=== PATIENT | male | born 1945 | race Caucasian/White ===

== ENCOUNTER 2016-07-05 22:53 | Inpatient (IN) | payer MEDICARE ==
[~2016-07-05] VITALS: Ht 174 cm; Wt 78.0 kg
[2016-07-05] MEDS ORDERED: SODIUM CHLORIDE 0.9% 1,000 ML ONE (23:30)
[2016-07-06] VITALS (8 sets, daily range): BP systolic 90–151; RESP 16–20; TEMP 97.8–99.3; Ht 174 cm; Wt 78.0 kg
[2016-07-06] MEDS ORDERED: DUONEB INH ONE (00:29)
[2016-07-06] MEDS ORDERED: PHARMACY TO DOSE VANCOMYCIN IV SCH (02:30)
[2016-07-06] MEDS ORDERED: SALINE FLUSH 10 ML FLUSH PRN (02:30)
[2016-07-06] MEDS: VANCOMYCIN 1,500 MG in SODIUM CHLORIDE 0.9% 250 ML IV SCH (05:23)
[2016-07-06] MEDS: SODIUM CHLORIDE 0.9% FLUSH BAG 500 ML IV SCH (05:24)
[2016-07-06] MEDS: SALINE FLUSH 10 ML FLUSH SCH ×2 (09:24→21:18)
[2016-07-06] MEDS: ENOXAPARIN 40 MG/0.4 ML SYR SUBQ SCH (09:24)
[2016-07-06] MEDS: LEVOFLOXACIN 750 MG/150 ML 150 ML IV SCH (09:24)
[2016-07-06] MEDS: CLOPIDOGREL 75 MG TAB PO SCH (12:50)
[2016-07-06] MEDS ORDERED: ZOLPIDEM 5 MG TAB PO PRN (12:50)
[2016-07-06] MEDS: CYANOCOBA 500 MCG TAB PO SCH (12:50)
[2016-07-06] MEDS: glipiZIDE 10 MG TAB PO SCH ×2 (12:50→21:18)
[2016-07-06] MEDS: METOPROLOL TART 50 MG TAB PO SCH ×2 (12:50→21:18)
[2016-07-06] MEDS: PANTOPRAZOLE 40 MG TAB PO SCH (13:07)
[2016-07-06] MEDS: FLUOCINONIDE 0.05% OINT 15 GM TOPICAL SCH (15:13)
[2016-07-06] MEDS: FLUOXETINE 20 MG CAP PO SCH (15:13)
[2016-07-06] MEDS: GABAPENTIN 400 MG CAP PO SCH ×2 (15:14→21:18)
[2016-07-06] MEDS: LEVEMIR INSULIN SUBQ SCH (15:14)
[2016-07-06] MEDS: NEB-ALBUTEROL 2.5 MG/3 ML INH PRN (21:09)
[2016-07-07] VITALS (7 sets, daily range): BP systolic 112–136; RESP 16–24; TEMP 97.2–100.7
[2016-07-07] MEDS ORDERED: ACETAMINOPHEN 500 MG TAB PO PRN (00:45)
[2016-07-07] MEDS: VANCOMYCIN 1,500 MG in SODIUM CHLORIDE 0.9% 250 ML IV SCH (04:53)
[2016-07-07] MEDS: PANTOPRAZOLE 40 MG TAB PO SCH (04:53)
[2016-07-07] MEDS: SODIUM CHLORIDE 0.9% FLUSH BAG 500 ML IV SCH (04:53)
[2016-07-07] MEDS: SALINE FLUSH 10 ML FLUSH SCH ×2 (08:00→20:17)
[2016-07-07] MEDS: glipiZIDE 10 MG TAB PO SCH ×2 (08:16→20:22)
[2016-07-07] MEDS: LEVEMIR INSULIN SUBQ SCH (08:16)
[2016-07-07] MEDS ORDERED: DEXTROSE 50% SYRINGE 50 ML IV PRN (08:25)
[2016-07-07] MEDS ORDERED: GLUCAGON 1 MG VIAL IM PRN (08:25)
[2016-07-07] MEDS: LEVOFLOXACIN 750 MG/150 ML 150 ML IV SCH (09:49)
[2016-07-07] MEDS: CYANOCOBA 500 MCG TAB PO SCH (09:50)
[2016-07-07] MEDS: FLUOXETINE 20 MG CAP PO SCH (09:51)
[2016-07-07] MEDS: GABAPENTIN 400 MG CAP PO SCH ×3 (09:51→20:22)
[2016-07-07] MEDS: CLOPIDOGREL 75 MG TAB PO SCH (09:52)
[2016-07-07] MEDS: METOPROLOL TART 50 MG TAB PO SCH ×2 (09:54→20:22)
[2016-07-07] MEDS: FLUOCINONIDE 0.05% OINT 15 GM TOPICAL SCH (09:54)
[2016-07-07] MEDS: ENOXAPARIN 40 MG/0.4 ML SYR SUBQ SCH (10:04)
[2016-07-07] MEDS: NEB-ALBUTEROL 2.5 MG/3 ML INH PRN (20:05)
[2016-07-08] VITALS (9 sets, daily range): BP systolic 124–152; RESP 16–18; TEMP 97.3–98.1
[2016-07-08] MEDS: SODIUM CHLORIDE 0.9% FLUSH BAG 500 ML IV SCH (05:20)
[2016-07-08] MEDS: VANCOMYCIN 1,500 MG in SODIUM CHLORIDE 0.9% 250 ML IV SCH ×2 (05:20→17:13)
[2016-07-08] MEDS: PANTOPRAZOLE 40 MG TAB PO SCH (06:22)
[2016-07-08] MEDS: LEVEMIR INSULIN SUBQ SCH (08:06)
[2016-07-08] MEDS: LEVOFLOXACIN 750 MG/150 ML 150 ML IV SCH (08:06)
[2016-07-08] MEDS: FLUOXETINE 20 MG CAP PO SCH (08:07)
[2016-07-08] MEDS: GABAPENTIN 400 MG CAP PO SCH ×3 (08:07→21:31)
[2016-07-08] MEDS: CLOPIDOGREL 75 MG TAB PO SCH (08:07)
[2016-07-08] MEDS: ENOXAPARIN 40 MG/0.4 ML SYR SUBQ SCH (08:07)
[2016-07-08] MEDS: CYANOCOBA 500 MCG TAB PO SCH (08:07)
[2016-07-08] MEDS: FLUOCINONIDE 0.05% OINT 15 GM TOPICAL SCH (08:08)
[2016-07-08] MEDS: METOPROLOL TART 50 MG TAB PO SCH ×2 (08:08→21:31)
[2016-07-08] MEDS: glipiZIDE 10 MG TAB PO SCH ×2 (08:08→21:31)
[2016-07-08] MEDS: SALINE FLUSH 10 ML FLUSH SCH ×2 (08:11→20:31)
[2016-07-08] MEDS ORDERED: MISSING DOSE XX ONE (14:50)
[2016-07-08] MEDS: NICOTINE 21 MG/24 HR TRANSDERM SCH (15:01)
[2016-07-09 05:05] VITALS: BP_SYST 122; RESP 20; TEMP 98.3
[2016-07-09] MEDS: SODIUM CHLORIDE 0.9% FLUSH BAG 500 ML IV SCH (05:40)
[2016-07-09] MEDS: VANCOMYCIN 1,500 MG in SODIUM CHLORIDE 0.9% 250 ML IV SCH ×2 (05:40→17:06)
[2016-07-09] MEDS: PANTOPRAZOLE 40 MG TAB PO SCH (06:15)
[2016-07-09 07:54] VITALS: BP_SYST 146; RESP 18; TEMP 97.9
[2016-07-09] MEDS: LEVEMIR INSULIN SUBQ SCH (09:09)
[2016-07-09] MEDS: GABAPENTIN 400 MG CAP PO SCH ×3 (09:10→20:52)
[2016-07-09] MEDS: glipiZIDE 10 MG TAB PO SCH ×2 (09:10→20:53)
[2016-07-09] MEDS: CLOPIDOGREL 75 MG TAB PO SCH (09:11)
[2016-07-09] MEDS: METOPROLOL TART 50 MG TAB PO SCH ×2 (09:11→20:52)
[2016-07-09] MEDS: FLUOXETINE 20 MG CAP PO SCH (09:11)
[2016-07-09] MEDS: CYANOCOBA 500 MCG TAB PO SCH (09:12)
[2016-07-09] MEDS: ENOXAPARIN 40 MG/0.4 ML SYR SUBQ SCH (09:12)
[2016-07-09] MEDS: NICOTINE 21 MG/24 HR TRANSDERM SCH (09:12)
[2016-07-09] MEDS: FLUOCINONIDE 0.05% OINT 15 GM TOPICAL SCH (09:13)
[2016-07-09] MEDS: LEVOFLOXACIN 750 MG/150 ML 150 ML IV SCH (09:16)
[2016-07-09] MEDS: SALINE FLUSH 10 ML FLUSH SCH ×2 (09:16→23:23)
[2016-07-09 12:18] VITALS: BP_SYST 147; RESP 20; TEMP 97.8
[2016-07-09 17:05] VITALS: BP_SYST 99; RESP 18; TEMP 97.4
[2016-07-09 20:49] VITALS: BP_SYST 129; RESP 20; TEMP 97.4
[2016-07-09 22:24] VITALS: BP_SYST 111; RESP 18; TEMP 98.3
[2016-07-10 04:47] VITALS: BP_SYST 161; RESP 16; TEMP 97.5
[2016-07-10] MEDS: VANCOMYCIN 1,500 MG in SODIUM CHLORIDE 0.9% 250 ML IV SCH ×2 (05:27→16:22)
[2016-07-10] MEDS: PANTOPRAZOLE 40 MG TAB PO SCH (05:27)
[2016-07-10] MEDS: SODIUM CHLORIDE 0.9% FLUSH BAG 500 ML IV SCH (05:27)
[2016-07-10 07:24] VITALS: BP_SYST 150; RESP 18; TEMP 97.6
[2016-07-10] MEDS: CYANOCOBA 500 MCG TAB PO SCH (08:54)
[2016-07-10] MEDS: SALINE FLUSH 10 ML FLUSH SCH ×2 (08:54→22:10)
[2016-07-10] MEDS: FLUOXETINE 20 MG CAP PO SCH (08:55)
[2016-07-10] MEDS: GABAPENTIN 400 MG CAP PO SCH ×3 (08:55→21:55)
[2016-07-10] MEDS: glipiZIDE 10 MG TAB PO SCH ×2 (08:55→21:56)
[2016-07-10] MEDS: METOPROLOL TART 50 MG TAB PO SCH ×2 (08:55→21:57)
[2016-07-10] MEDS: CLOPIDOGREL 75 MG TAB PO SCH (08:56)
[2016-07-10] MEDS: LEVEMIR INSULIN SUBQ SCH (08:56)
[2016-07-10] MEDS: ENOXAPARIN 40 MG/0.4 ML SYR SUBQ SCH (08:56)
[2016-07-10] MEDS: FLUOCINONIDE 0.05% OINT 15 GM TOPICAL SCH (08:57)
[2016-07-10] MEDS: NICOTINE 21 MG/24 HR TRANSDERM SCH (08:57)
[2016-07-10] MEDS ORDERED: MISSING DOSE XX ONE (09:05)
[2016-07-10] MEDS: LEVOFLOXACIN 750 MG TAB PO SCH (09:43)
[2016-07-10 11:13] VITALS: BP_SYST 129; RESP 18; TEMP 97.4
[2016-07-10 15:07] VITALS: BP_SYST 114; RESP 18; TEMP 97.3
[2016-07-10 19:19] VITALS: BP_SYST 132; RESP 16; TEMP 97.5
[2016-07-11] VITALS (7 sets, daily range): BP systolic 128–147; RESP 18; TEMP 97.6–98.1
[2016-07-11] MEDS: SODIUM CHLORIDE 0.9% FLUSH BAG 500 ML IV SCH (05:22)
[2016-07-11] MEDS: VANCOMYCIN 1,500 MG in SODIUM CHLORIDE 0.9% 250 ML IV SCH (05:22)
[2016-07-11] MEDS: PANTOPRAZOLE 40 MG TAB PO SCH (05:23)
[2016-07-11] MEDS: FLUOXETINE 20 MG CAP PO SCH (08:38)
[2016-07-11] MEDS: CYANOCOBA 500 MCG TAB PO SCH (08:38)
[2016-07-11] MEDS: NICOTINE 21 MG/24 HR TRANSDERM SCH (08:39)
[2016-07-11] MEDS: CLOPIDOGREL 75 MG TAB PO SCH (08:40)
[2016-07-11] MEDS: glipiZIDE 10 MG TAB PO SCH ×2 (08:41→21:24)
[2016-07-11] MEDS: LEVOFLOXACIN 750 MG TAB PO SCH (08:41)
[2016-07-11] MEDS: LEVEMIR INSULIN SUBQ SCH (08:42)
[2016-07-11] MEDS: GABAPENTIN 400 MG CAP PO SCH ×3 (08:43→21:25)
[2016-07-11] MEDS: METOPROLOL TART 50 MG TAB PO SCH ×2 (08:43→21:25)
[2016-07-11] MEDS: FLUOCINONIDE 0.05% OINT 15 GM TOPICAL SCH (08:47)
[2016-07-11] MEDS: SALINE FLUSH 10 ML FLUSH SCH ×2 (08:49→21:24)
[2016-07-11] MEDS: ENOXAPARIN 40 MG/0.4 ML SYR SUBQ SCH (08:50)
[2016-07-12 03:00] VITALS: BP_SYST 131; RESP 18; TEMP 97.7
[2016-07-12] MEDS: PANTOPRAZOLE 40 MG TAB PO SCH (05:52)
[2016-07-12] MEDS: SODIUM CHLORIDE 0.9% FLUSH BAG 500 ML IV SCH (05:52)
[2016-07-12 07:43] VITALS: BP_SYST 140; RESP 16; TEMP 98
[2016-07-12] MEDS: FLUOCINONIDE 0.05% OINT 15 GM TOPICAL SCH (08:29)
[2016-07-12] MEDS: SALINE FLUSH 10 ML FLUSH SCH ×2 (08:30→20:33)
[2016-07-12] MEDS: FLUOXETINE 20 MG CAP PO SCH (08:30)
[2016-07-12] MEDS: CLOPIDOGREL 75 MG TAB PO SCH (08:31)
[2016-07-12] MEDS: METOPROLOL TART 50 MG TAB PO SCH ×2 (08:31→20:32)
[2016-07-12] MEDS: glipiZIDE 10 MG TAB PO SCH ×2 (08:32→20:32)
[2016-07-12] MEDS: GABAPENTIN 400 MG CAP PO SCH ×3 (08:32→20:33)
[2016-07-12] MEDS: CYANOCOBA 500 MCG TAB PO SCH (08:33)
[2016-07-12] MEDS: LEVOFLOXACIN 750 MG TAB PO SCH (08:34)
[2016-07-12] MEDS: LEVEMIR INSULIN SUBQ SCH (08:34)
[2016-07-12] MEDS: NICOTINE 21 MG/24 HR TRANSDERM SCH (08:34)
[2016-07-12] MEDS: ENOXAPARIN 40 MG/0.4 ML SYR SUBQ SCH (09:37)
[2016-07-12 11:12] VITALS: BP_SYST 137; RESP 18; TEMP 97.5
[2016-07-12] MEDS: CLOTRIMAZOLE 1% CR 15 GM TOPICAL SCH ×2 (13:12→20:33)
[2016-07-12 15:32] VITALS: BP_SYST 130; RESP 18; TEMP 97.4
[2016-07-12 20:00] VITALS: BP_SYST 115; RESP 18; TEMP 97.9
[2016-07-12] MEDS: TRIAMCIN 0.1% OINT 15 GM TOPICAL SCH (20:33)
[2016-07-12 23:39] VITALS: BP_SYST 143; RESP 18; TEMP 97.7
[2016-07-13 04:13] VITALS: BP_SYST 147; RESP 18; TEMP 97.8
[2016-07-13] MEDS: SODIUM CHLORIDE 0.9% FLUSH BAG 500 ML IV SCH (05:58)
[2016-07-13] MEDS ORDERED: MISSING DOSE XX ONE (06:10)
[2016-07-13] MEDS: PANTOPRAZOLE 40 MG TAB PO SCH (06:16)
[2016-07-13 08:17] VITALS: BP_SYST 127; RESP 18; TEMP 98
[2016-07-13] MEDS: LEVEMIR INSULIN SUBQ SCH (10:11)
[2016-07-13] MEDS: ENOXAPARIN 40 MG/0.4 ML SYR SUBQ SCH (10:11)
[2016-07-13] MEDS: CLOPIDOGREL 75 MG TAB PO SCH (10:12)
[2016-07-13] MEDS: FLUOXETINE 20 MG CAP PO SCH (10:12)
[2016-07-13] MEDS: CYANOCOBA 500 MCG TAB PO SCH (10:12)
[2016-07-13] MEDS: METOPROLOL TART 50 MG TAB PO SCH (10:13)
[2016-07-13] MEDS: glipiZIDE 10 MG TAB PO SCH (10:13)
[2016-07-13] MEDS: GABAPENTIN 400 MG CAP PO SCH (10:13)
[2016-07-13] MEDS: SALINE FLUSH 10 ML FLUSH SCH (10:14)
[2016-07-13] MEDS: CLOTRIMAZOLE 1% CR 15 GM TOPICAL SCH (10:16)
[2016-07-13] MEDS: TRIAMCIN 0.1% OINT 15 GM TOPICAL SCH (10:16)
[2016-07-13] MEDS: NICOTINE 21 MG/24 HR TRANSDERM SCH (10:16)
[2016-07-13 12:14] VITALS: BP_SYST 155; RESP 16; TEMP 98.2
[2016-07-13 13:06] VITALS: BP_SYST 155; RESP 16; TEMP 98.2
[2016-07-13 14:54] VITALS: BP_SYST 123; RESP 22; TEMP 97.1
== END 2016-07-13 15:58 | disposition home health service (06) | DRG 871 ==
LOC: ENRESERVDT → ENRESERVTM → ENRESERV → ER 22:53 → ENPENDDIS 07-06 00:55 → EMR 07-06 00:55 → 4NT 07-06 02:50
PROVIDERS: ADMIT Family Medicine; ATTEND Family Medicine
PROC: 0HBRXZZ Excision of Toe Nail, External Approach (ICD-10-PCS; principal; 2016-07-06)
DX: A41.9 Sepsis, unspecified organism (principal); J18.9 Pneumonia, unspecified organism; E11.51 Type 2 diabetes mellitus with diabetic peripheral angiopathy without gangrene; G20 Parkinson's disease; B35.1 Tinea unguium; I25.10 Atherosclerotic heart disease of native coronary artery without angina pectoris; I10 Essential (primary) hypertension; I69.954 Hemiplegia and hemiparesis following unspecified cerebrovascular disease affecting left non-dominant side; B35.3 Tinea pedis; Y95 Nosocomial condition; M19.90 Unspecified osteoarthritis, unspecified site; K21.9 Gastro-esophageal reflux disease without esophagitis; Z91.81 History of falling; Z96.653 Presence of artificial knee joint, bilateral; Z79.84 Long term (current) use of oral hypoglycemic drugs; Z79.02 Long term (current) use of antithrombotics/antiplatelets; Z79.4 Long term (current) use of insulin
CPT/HCPCS: 36415; 71010; 80048; 80053; 80202; 80307; 81001; 82553; 82947; 83605; 83735; 83880; 84484; 85025; 85610; 85730; 87040; 87071; 87088; 87205; 93005; 94640; 94799; 96361; 96365; 99222; 99231; 99232; 99233; 99238

== ENCOUNTER 2016-07-30 01:08 | Observation (INO) | payer MEDICARE ==
[~2016-07-30] VITALS: Ht 170.2 cm; Wt 77.7 kg
[2016-07-30] MEDS ORDERED: OPTIRAY 350 100 ML VIAL HMH IV ONE (01:09)
[2016-07-30] MEDS ORDERED: ASPIRIN 81 MG CHEW TAB ONE (01:59)
[2016-07-30] MEDS ORDERED: NITROGLYCERIN 2% OINT 1 INCH PKT TOPICAL ONE (04:53)
[2016-07-30] MEDS ORDERED: NITROGLYCERIN SL 0.4 MG TAB SL PRN (05:20)
[2016-07-30] MEDS ORDERED: MORPHINE 2 MG/ML SYR IV PRN (05:20)
[2016-07-30] MEDS ORDERED: ONDANSETRON 4 MG VIAL IV PRN (05:20)
[2016-07-30] MEDS ORDERED: SODIUM CHLORIDE 0.9% FLUSH BAG 500 ML IV PRN (05:20)
[2016-07-30] MEDS ORDERED: SODIUM CHLORIDE 0.9% 1,000 ML IV SCH (05:20)
[2016-07-30] MEDS ORDERED: SALINE FLUSH 10 ML FLUSH PRN (05:20)
[2016-07-30] MEDS ORDERED: TEMAZEPAM 7.5 MG CAP PO PRN (05:20)
[2016-07-30] MEDS ORDERED: TRAMADOL 50 MG TAB PO PRN (05:20)
[2016-07-30] MEDS ORDERED: DOCUSATE SOD 100 MG CAP PO PRN (05:20)
[2016-07-30] MEDS ORDERED: NITROGLYCERIN 50 MG/250 ML IV PRN (05:20)
[2016-07-30] MEDS ORDERED: ACETAMINOPHEN 325 MG TAB PO PRN (05:20)
[2016-07-30] MEDS ORDERED: LORAZEPAM 0.5 MG TAB PO PRN (05:20)
[2016-07-30 06:01] VITALS: RESP 20
[2016-07-30 06:07] VITALS: BP_SYST 158; RESP 16; TEMP 98
[2016-07-30 06:08] VITALS: Ht 170.2 cm; Wt 77.7 kg
[2016-07-30] MEDS: SALINE FLUSH 10 ML FLUSH SCH ×2 (08:05→20:30)
[2016-07-30] MEDS: ASPIRIN EC 81 MG TAB PO SCH (08:05)
[2016-07-30] MEDS ORDERED: GLUCAGON 1 MG VIAL IM PRN (09:45)
[2016-07-30] MEDS ORDERED: DEXTROSE 50% SYRINGE 50 ML IV PRN (09:45)
[2016-07-30] MEDS: GABAPENTIN 100 MG CAP PO SCH ×3 (10:28→20:32)
[2016-07-30] MEDS: CYANOCOBA 500 MCG TAB PO SCH (10:29)
[2016-07-30] MEDS: glipiZIDE 10 MG TAB PO SCH ×2 (10:29→20:31)
[2016-07-30] MEDS: DICLOFENAC 75 MG TAB PO SCH ×2 (10:29→20:33)
[2016-07-30] MEDS: FLUOXETINE 20 MG CAP PO SCH ×2 (10:30→20:33)
[2016-07-30] MEDS: CLOPIDOGREL 75 MG TAB PO SCH (10:30)
[2016-07-30] MEDS: PANTOPRAZOLE 40 MG TAB PO SCH (10:31)
[2016-07-30 11:33] VITALS: BP_SYST 134; RESP 16; TEMP 97.2
[2016-07-30 16:17] VITALS: BP_SYST 147; RESP 16; TEMP 97.6
[2016-07-30 19:55] VITALS: BP_SYST 147; RESP 16; TEMP 97.8
[2016-07-30] MEDS ORDERED: Atorvastatin 10 MG TAB PO SCH (21:00)
[2016-07-31 00:01] VITALS: BP_SYST 132; RESP 16; TEMP 98.4
[2016-07-31 03:04] VITALS: BP_SYST 142; RESP 18; TEMP 98.2
[2016-07-31] MEDS: PANTOPRAZOLE 40 MG TAB PO SCH (06:51)
[2016-07-31 07:41] VITALS: BP_SYST 133; RESP 16; TEMP 98.1
[2016-07-31] MEDS: SALINE FLUSH 10 ML FLUSH SCH (08:57)
[2016-07-31] MEDS: GABAPENTIN 100 MG CAP PO SCH (08:57)
[2016-07-31] MEDS: ASPIRIN EC 81 MG TAB PO SCH (08:57)
[2016-07-31] MEDS: CYANOCOBA 500 MCG TAB PO SCH (08:58)
[2016-07-31] MEDS: glipiZIDE 10 MG TAB PO SCH (08:58)
[2016-07-31] MEDS: FLUOXETINE 20 MG CAP PO SCH (08:58)
[2016-07-31] MEDS: DICLOFENAC 75 MG TAB PO SCH (08:58)
[2016-07-31] MEDS: CLOPIDOGREL 75 MG TAB PO SCH (08:58)
[2016-07-31 11:12] VITALS: BP_SYST 133; RESP 16; TEMP 98.1
[2016-07-31 11:14] VITALS: BP_SYST 133; RESP 18; TEMP 98.6
== END 2016-07-31 10:39 | disposition home or self-care (01) ==
LOC: ENRESERVTM → ENRESERV → ENRESERVDT → ER 01:08 → ENPENDDIS 04:48 → EMR 04:48 → PCU 05:47
PROVIDERS: ADMIT Internal Medicine Cardiovascular Disease; ATTEND Internal Medicine Cardiovascular Disease
DX: R07.9 Chest pain, unspecified (principal); I10 Essential (primary) hypertension; E11.9 Type 2 diabetes mellitus without complications; I25.10 Atherosclerotic heart disease of native coronary artery without angina pectoris; I69.954 Hemiplegia and hemiparesis following unspecified cerebrovascular disease affecting left non-dominant side; F17.210 Nicotine dependence, cigarettes, uncomplicated; G20 Parkinson's disease; J44.9 Chronic obstructive pulmonary disease, unspecified; F43.10 Post-traumatic stress disorder, unspecified; R00.1 Bradycardia, unspecified
CPT/HCPCS: 36415; 71010; 71260; 80053; 80061; 82550; 82553; 82947; 83735; 84484; 85025; 85379; 85610; 85730; 93005; 97116; 97161; 99285; G0378; G8978; G8979; Q9967; 94799